=== PATIENT | male | born 1945 | race Caucasian/White ===

== ENCOUNTER → 2020-01-09 | Outpatient (CLI) | payer MEDICARE ==
--- NOTE | 2020-01-09 10:30 | Diagnostic Imaging Report ---
Exam: Bone mineral density study. History: Osteoarthritis Comparison: None Discussion: Evaluation of the left hip and lumbar spine was performed. The study is technically adequate. The patient's fracture risk is compared to an age-matched control. The patient denies prior surgery/fracture of the spine, hips or forearm. Left hip femoral neck bone mineral density: 0.889 g/cm2, T-score is -0.3, Z-score is 1.0. Left hip total bone mineral density: 1.055 g/cm2, T-score is 0.1, Z-score is 0.9. Lumbar spine total bone mineral density: 0.965 gm/cm2, T-score is -1.1, Z-score is -0.2. Impression: 1. Bone mineralization by WHO Classification of the left hip is normal, the fracture risk is not increased. 2. Bone mineralization by WHO Classification of the lumbar spine is osteopenia, the fracture risk is moderate. Recommendations: Medical evaluation for secondary causes of low bone mineral density may be appropriate. Correlate clinically for the necessity and timing of the next bone mineral density study. Signed by: Dr. Harsha Montana MD on 01/09/2020 10:27 AM
== END ==
LOC: DX 09:50
PROVIDERS: ATTEND Specialist
DX: M75.41 Impingement syndrome of right shoulder (principal); M75.42 Impingement syndrome of left shoulder; M19.011 Primary osteoarthritis, right shoulder; M19.012 Primary osteoarthritis, left shoulder
CPT/HCPCS: 77080